=== PATIENT | female | born 1985 | race Caucasian/White ===

== ENCOUNTER 2018-07-18 19:19 | Emergency (ER) | payer OTHER ==
--- NOTE | 2018-07-18 20:10 | PDOC ---
History of Present Illness - General History Source: Patient Exam Limitations: No Limitations - History of Present Illness Initial Comments: 07/18/18 20:31 The patient is a 32 year old female with a significant past medical history of chronic back pain who presents to the emergency department with 1 week of upper abdominal pain. The patient describes her back pain as intermittent, non radiating cramps. The patient states she endorsed 3 episodes of watery diarrhea yesterday and 2 episodes this morning. The states she experienced nausea, burping, heartburn, and generalized fatigue, secondary to her abdominal pain. The patient notes she saw her PCP on Wednesday and was prescribed Simethicone and Ranitidine, with no relief. The patient states she did not eat or drink much today, however, her symptoms have since resolved. The patient denies sick contact or any recent travels. The patient denies chest pain, shortness of breath, headache or dizziness. The patient denies fever, chills, vomit, or constipation. The patient denies dysuria, frequency, urgency or hematuria. Allergies: NKDA Past surgical history: none reported Social history: Former smoker (quit 1 weeks ago). Occasional drinker. PCP: Dacia Hernadez <Wilda Quinones - Last Filed: 07/18/18 20:38> <Lorena Katz - Last Filed: 07/19/18 01:18> - General Chief Complaint: Pain Stated Complaint: ABD PAIN Time Seen by Provider: 07/18/18 19:31 Past History <Wilda Quinones - Last Filed: 07/18/18 20:38> <Lorena Katz - Last Filed: 07/19/18 01:18> - Past Medical History Allergies/Adverse Reactions: Allergies Allergy/AdvReac Type Severity Reaction Status Date / Time No Known Allergies Allergy Verified 07/18/18 19:21 Home Medications: Ambulatory Orders Esomeprazole Magnesium [Nexium 24Hr] 20 mg PO DAILY #20 tablet. 07/18/18 Hyoscyamine Odt [Levsin Odt -] 0.125 mg PO TID PRN #12 tab.rapdis 07/18/18 Ranitidine HCl 150 mg PO BID 07/18/18 Simethicone [Gas Relief] 80 mg PO TID 07/18/18 Review of Systems - Review of Systems Able to Perform ROS?: Yes Comments:: 07/18/18 20:33 GENERAL/CONSTITUTIONAL: (+) generalized fatigue.(+) burping. No fever or chills. HEAD, EYES, EARS, NOSE AND THROAT: No change in vision. No ear pain or discharge. No sore throat. CARDIOVASCULAR: No chest pain or shortness of breath. RESPIRATORY: (+) heartburn. No cough, wheezing, or hemoptysis. GASTROINTESTINAL: (+) nausea. (+)diarrhea. No vomiting or constipation. GENITOURINARY: No dysuria, frequency, or change in urination. MUSCULOSKELETAL:(+) Upper abdominal pain. No joint or muscle swelling or pain. No neck or back pain. SKIN: No rash NEUROLOGIC: No headache, vertigo, loss of consciousness, or change in strength/ sensation. ENDOCRINE: No increased thirst. No abnormal weight change. HEMATOLOGIC/LYMPHATIC: No anemia, easy bleeding, or history of blood clots. ALLERGIC/IMMUNOLOGIC: No hives or skin allergy. <Wilda Quinones - Last Filed: 07/18/18 20:38> *Physical Exam - Vital Signs Last Vital Signs Temp Pulse Resp BP Pulse Ox 98.5 F 74 16 130/88 99 07/18/18 19:20 07/18/18 19:20 07/18/18 19:20 07/18/18 19:20 07/18/18 19:20 - Physical Exam Comments: 07/18/18 20:33 GENERAL: Awake, alert, and fully oriented, in no acute distress HEAD: No signs of trauma EYES: PERRLA, EOMI, sclera anicteric, conjunctiva clear ENT: Auricles normal inspection, hearing grossly normal, nares patent, oropharynx clear without exudates. Moist mucosa NECK: Normal ROM, supple, no lymphadenopathy, JVD, or masses LUNGS: Breath sounds equal, clear to auscultation bilaterally. No wheezes, and no crackles HEART: Regular rate and rhythm, normal S1 and S2, no murmurs, rubs or gallops ABDOMEN: Soft, nontender, normoactive bowel sounds. No guarding, no rebound. No masses EXTREMITIES: Normal range of motion, no edema. No clubbing or cyanosis. No cords, erythema, or tenderness NEUROLOGICAL: Cranial nerves II through XII grossly intact. Normal speech, normal gait SKIN: Warm, Dry, normal turgor, no rashes or lesions noted. <Wilda Quinones - Last Filed: 07/18/18 20:38> ED Treatment Course - ADDITIONAL ORDERS Additional order review: Laboratory Results 07/18/18 20:20 POC Urine HCG, Qual Negative <Wilda Quinones - Last Filed: 07/18/18 20:38> Progress Note - Progress Note Progress Note: Documentation has been prepared under my direction and personally reviewed by me in its entirety. I attest that this documented accurately reflects all work, treatment, procedures and medical decision making performed by me. <Lorena Katz - Last Filed: 07/19/18 01:18> Medical Decision Making - Medical Decision Making As noted above, this 32-year-old woman with no significant past medical history but intermittent dyspepsia/"bloating" with certain foods presents with intermittent epigastric pain for the last several days along with intermittent diarrhea for the last 10 days. She was seen by her PMD 6 days ago and ranitidine with simethicone prescribed. Patient states that these medications did not relieve her symptoms. She has not had fever/chills or nausea/vomiting during the present illness. Exam as noted. Patient has no abdominal tenderness or pain at the time of examination. Clinical presentation most consistent with epigastric discomfort secondary to hyperacidity/gastritis. She may also be having intermittent episodes of smooth muscle spasm. She may have had gastroesophageal reflux in the past, considering her history of dyspepsia after certain foods. Since H2-tonya has not helped with her symptoms for the last week, PPI will be started. Patient given prescription for Nexium 20 mg daily each day. Also, prescription sent for Levsin ODT 0.125 mg to be used as needed during times of more severe epigastric pain. She should follow-up with her general doctor within the next several days. She is also given referral information for Dr. Cuenca, chronometer repairer in case she has persistent epigastric discomfort. She should return to the emergency room if she develops severe, persistent pain or fever/vomiting. <Lorena Katz - Last Filed: 07/19/18 01:18> *DC/Admit/Observation/Transfer - Attestations Scribe Attestion: 07/18/18 20:33 Documentation prepared by Wilda Quinones, acting as medical case manager for Lorena Katz MD <Wilda Quinones - Last Filed: 07/18/18 20:38> <Lorena Katz - Last Filed: 07/19/18 01:18> Diagnosis at time of Disposition: Gastritis Qualifiers: Gastritis type: unspecified gastritis Chronicity: acute Gastritis bleeding: without bleeding Qualified Code(s): K29.00 - Acute gastritis without bleeding - Discharge Dispostion Disposition: HOME Condition at time of disposition: Stable - Prescriptions Prescriptions: Esomeprazole Magnesium [Nexium 24Hr] 20 mg PO DAILY #20 tablet. Hyoscyamine Odt [Levsin Odt -] 0.125 mg PO TID PRN #12 tab.rapdis PRN Reason: Pain - Referrals Referrals: Hattie Greco [Primary Care Provider] - Dex Cuenca MD [Staff Physician] - - Patient Instructions Printed Discharge Instructions: DI for Gastritis Additional Instructions: [place] diet Nexium 20 mg daily Levsin ODT 0.125 mg up to 3 times a day as needed for epigastric pain Return to ER if you have severe, persistent pain or experience vomiting/fever Follow-up with your general doctor within the next 5 days Follow-up with chronometer repairer (Dr. Cuenca) if you continue to have stomach pain - Post Discharge Activity
[2018-07-18 20:15] VITALS: BP 130/88; PULSE 74; TEMP 98.5; BMI 29.9
== END 2018-07-18 20:56 | disposition home or self-care (01) ==
LOC: FER 19:19
DX: K29.00 Acute gastritis without bleeding (principal)
CPT/HCPCS: 81003; 81025; 99282-25